=== PATIENT | male | born 1995 | race Two or more races ===

== ENCOUNTER 2017-01-05 18:56 | Emergency (ER) | payer MEDICAID, OTHER ==
[~2017-01-05] VITALS: Ht 167.6 cm; Wt 122.5 kg
[2017-01-05 19:11] LABS: BASOPHILS # (AUTO) 0.1 /CMM (0.0-0.2); BASOPHILS % (AUTO) 1.2 % (0.0-2.0); EOSINOPHILS # (AUTO) 0.3 /CMM (0.0-0.7); EOSINOPHILS % (AUTO) 2.6 % (0.0-6.0); HEMATOCRIT 47 % (39-51); HEMOGLOBIN 15.8 g/dL (13.5-17.5); LYMPHOCYTES # (AUTO) 2.7 /CMM (0.8-4.8); LYMPHOCYTES % (AUTO) 22.6 % (20.0-44.0); MEAN CORPUSCULAR HEMOGLOBIN 29 PG (26.0-33.0); MEAN CORPUSCULAR HGB CONC 34 g/dl (31.0-36.0); MEAN CORPUSCULAR VOLUME 86 fL (80-96); MONOCYTES # (AUTO) 1.2 /CMM (0.1-1.30); MONOCYTES % (AUTO) 9.9 % (2.0-12.0); NEUTROPHILS # (AUTO) 7.8 /CMM (1.8-8.9); NEUTROPHILS % (AUTO) 63.7 % (43.0-81.0); PLATELET COUNT (AUTO) 234 /CMM (150-450); RDW COEFFICIENT OF VARIATION 13.4 (11.5-15.0); RED BLOOD CELL COUNT(AUTO) 5.42 MIL/uL (4.5-6.0)
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
[2017-01-05 19:25] LABS: CALCIUM, SERUM 9.1 mg/dL (8.5-10.1); CARBON DIOXIDE 25 mmol/L (21-32); CHLORIDE 105 mmol/L (98-107); CREATININE 1.4 mg/dL (0.6-1.3); GLUCOSE 106 mg/dL (74-106); POTASSIUM 3.8 mmol/L (3.5-5.1); SODIUM SERUM 142 mmol/L (136-145); UREA NITROGEN, BLOOD 14 mg/dL (7-18)
[2017-01-05] MEDS ORDERED: LORAZEPAM 1 MG TABLET ONE (19:25)
[2017-01-05 19:28] LABS: WHITE BLOOD COUNT (AUTO) 12.1 K/uL (4.3-11.0)
[2017-01-05] MEDS ORDERED: LORAZEPAM 1 MG TABLET PO ONE (19:30)
[2017-01-05 19:31] LABS: ALANINE AMINOTRANSFERASE 97 U/L (12-78); ALBUMIN 4.1 g/dL (3.4-5.0); ALCOHOL, BLOOD < 3 mg/dL (0-0); ALKALINE PHOSPHATASE 102 U/L (46-116); ASPARTATE AMINOTRANSFERASE 40 U/L (15-37); BILIRUBIN,DIRECT 0.1 mg/dL (0.0-0.2); BILIRUBIN,TOTAL 0.3 mg/dL (0.2-1.0); TOTAL PROTEIN, SERUM 7.8 g/dL (6.4-8.2)
[2017-01-05 19:33] LABS: ACETAMINOPHEN 0 ug/ml (10-30); SALICYLATE 1.5 mg/dL (2.8-20.0)
--- NOTE | 2017-01-05 19:45 | NUR ---
PT UNABLE TO PROVIDE URINE SAMPLE AT THIS TIME. GIVEN WATER.
[2017-01-05 20:17] LABS: APPEARANCE,URINE Clear (CLEAR); BILIRUBIN,URINE Negative (NEGATIVE); BLOOD, URINE Trace-intact Ery/uL (NEGATIVE); COLOR,URINE Yellow (YELLOW); KETONES,URINE Negative (NEGATIVE); LEUKOCYTE ESTERASE ,URINE Negative (NEGATIVE); NITRITE, URINE Negative (NEGATIVE); PROTEIN,URINE 30 mg/dl (NEGATIVE); UGLUCOSE Negative (NEGATIVE); UROBILINOGEN,URINE 0.2 EU/dL (0.2)
[2017-01-05 20:31] LABS: BACTERIA,URINE Rare /HPF (None Seen); SQUAMOUS EPITHELIAL CELL,UR None Seen /HPF (None Seen); WBC,URINE 0-2 /HPF (0-3)
--- NOTE | 2017-01-05 21:05 | NUR ---
PT RESTING QUIETLY, NAD NOTED. ALL NEEDS ATTENDED TO.
--- NOTE | 2017-01-05 21:23 | NUR ---
REPORT GIVEN TO YESSICA REAGAN AT [facility] FOR TRANSFER.
[2017-01-05 21:28] VITALS: BP 143/84
--- NOTE | 2017-01-05 21:39 | NUR ---
PT TRANSFERRED TO [facility] IN STABLE CONDITION. ALL PAPERWORK WITH PT.
== END 2017-01-05 21:40 ==
LOC: ER 19:00
DX: F32.9 Major depressive disorder, single episode, unspecified (principal); F41.9 Anxiety disorder, unspecified; J45.909 Unspecified asthma, uncomplicated; E11.9 Type 2 diabetes mellitus without complications; F84.0 Autistic disorder
CPT/HCPCS: 36415; 80048-TC; 80076-TC; 80305; 81000-TC; 85025-TC; A4606; G0480; G6039-TC; Z7610

== ENCOUNTER 2017-02-18 06:18 | Emergency (ER) | payer OTHER ==
[~2017-02-18] VITALS: Ht 165.1 cm; Wt 115.2 kg
[2017-02-18 06:25] VITALS: BP 146/94
[2017-02-18] MEDS ORDERED: LET SOLN TOPICAL 8 ML UDC TP ONE (06:31)
[2017-02-18] MEDS: LET SOLN TOPICAL 8 ML UDC TP ONE (06:38)
== END 2017-02-18 07:05 | disposition home or self-care (01) ==
LOC: ER 06:18
DX: L02.511 Cutaneous abscess of right hand (principal); L03.011 Cellulitis of right finger; H60.92 Unspecified otitis externa, left ear; H66.92 Otitis media, unspecified, left ear; J45.909 Unspecified asthma, uncomplicated
CPT/HCPCS: A4606; A6403; Z7610

== ENCOUNTER 2017-02-22 18:45 | Emergency (ER) | payer OTHER ==
[~2017-02-22] VITALS: Ht 165.1 cm; Wt 106.6 kg
[2017-02-22 18:45] VITALS: BP 148/81
== END 2017-02-22 21:29 | disposition home or self-care (01) ==
LOC: ER 21:10
DX: L98.0 Pyogenic granuloma (principal); J45.909 Unspecified asthma, uncomplicated
CPT/HCPCS: A4606; Z7610

== ENCOUNTER 2017-02-28 20:05 | Emergency (ER) | payer OTHER ==
[~2017-02-28] VITALS: Ht 162.6 cm; Wt 113.4 kg
[2017-02-28] MEDS ORDERED: GELATIN SPONGE,ABSORBABLE 1 SPONGE SPONGE TP ONE (20:36)
--- NOTE | 2017-02-28 20:36 | NUR ---
COURTNEY AUGUSTINE IS AT THE BEDSIDE. GEL FOAM AT THE BEDSIDE FOR PROCEDURE.
--- NOTE | 2017-02-28 21:21 | NUR ---
Patient discharged to home in stable condition. Written and verbal after care instructions given. Patient verbalizes understanding of instruction. PT AMBULATED OUT WITH A STEADY GAIT.
[2017-02-28 21:22] VITALS: BP 117/84
== END 2017-02-28 21:22 | disposition home or self-care (01) ==
LOC: ER 20:07
DX: S69.91XA Unspecified injury of right wrist, hand and finger(s), initial encounter (principal); L98.0 Pyogenic granuloma; R23.3 Spontaneous ecchymoses; E66.01 Morbid (severe) obesity due to excess calories; L98.9 Disorder of the skin and subcutaneous tissue, unspecified; J45.909 Unspecified asthma, uncomplicated; Z68.41 Body mass index [BMI] 40.0-44.9, adult; W22.8XXA Striking against or struck by other objects, initial encounter; Y93.G3 Activity, cooking and baking; Y92.89 Other specified places as the place of occurrence of the external cause; Y99.9 Unspecified external cause status
CPT/HCPCS: 99283; A4606; A6402; Z7610

== ENCOUNTER 2018-08-23 16:09 | Emergency (ER) | payer OTHER ==
[~2018-08-23] VITALS: Ht 165.1 cm; Wt 121.6 kg
[2018-08-23 16:17] VITALS: BP 187/94
[2018-08-23] MEDS ORDERED: FAMOTIDINE (20 MG) 20 MG TABLET ONE (16:27)
[2018-08-23] MEDS ORDERED: methylPREDNISolone SOD SUCC 125 MG/2ML VIAL ONE (16:27)
[2018-08-23] MEDS ORDERED: methylPREDNISolone SOD SUCC 125 MG/2ML VIAL IM ONE (16:30)
[2018-08-23] MEDS ORDERED: FAMOTIDINE (20 MG) 20 MG TABLET PO ONE (16:30)
== END 2018-08-23 16:57 | disposition home or self-care (01) ==
LOC: ER 16:12
DX: J30.81 Allergic rhinitis due to animal (cat) (dog) hair and dander (principal)
CPT/HCPCS: 96372; 99283; A4606; J2930; Z7610

== ENCOUNTER 2018-09-05 11:21 | Emergency (ER) | payer OTHER ==
[~2018-09-05] VITALS: Ht 165.1 cm; Wt 122.5 kg
--- NOTE | 2018-09-05 11:21 | NUR ---
PT BIB SELF C/O THROAT TIGHTNESS, LIP SWELLING PROGRESSIVELY GETTING WORST X LAST NIGHT, PT IS AAOX4. NOT IN RESPIRATORY DISTRESS, KEPT RESTED AND COMFORTABLE.
--- NOTE | 2018-09-05 11:30 | NUR ---
SEEND AND EXAMINED BY DR. PIERSON.
[2018-09-05] MEDS ORDERED: methylPREDNISolone SOD SUCC 125 MG/2ML VIAL ONE (11:38)
[2018-09-05] MEDS ORDERED: FAMOTIDINE/PF INJ 20 MG/2 ML VIAL IV ONE ×2 (11:38→12:00)
[2018-09-05] MEDS ORDERED: diphenhydrAMINE HCL 50 MG/ML VIAL ONE (11:38)
[2018-09-05] MEDS ORDERED: methylPREDNISolone SOD SUCC 125 MG/2ML VIAL IV ONE (12:00)
[2018-09-05] MEDS ORDERED: diphenhydrAMINE HCL 50 MG/ML VIAL IV ONE (12:00)
--- NOTE | 2018-09-05 13:25 | NUR ---
IV removed. Catheter intact and site benign. Pressure and 4x4 applied to site. No bleeding noted. Patient discharged to home in stable condition. Written and verbal after care instructions given. Patient verbalizes understanding of instruction.
[2018-09-05 13:26] VITALS: BP 131/82
== END 2018-09-05 13:28 | disposition home or self-care (01) ==
LOC: ER 11:22
DX: J03.81 Acute recurrent tonsillitis due to other specified organisms (principal); R13.10 Dysphagia, unspecified
CPT/HCPCS: J1200; J2930; J3490

== ENCOUNTER 2021-11-26 10:14 | Emergency (ER) | payer OTHER ==
[~2021-11-26] VITALS: Ht 165.1 cm; Wt 127.0 kg
[2021-11-26 10:20] VITALS: BP 145/87
[2021-11-26] MEDS ORDERED: KETOROLAC TROMETHAMINE INJ 30 MG/ML VIAL ONE (10:51)
[2021-11-26] MEDS ORDERED: KETOROLAC TROMETHAMINE INJ 30 MG/ML VIAL IM ONE (11:00)
[2021-11-26] MEDS ORDERED: IBUP-1957 PO (11:25)
--- NOTE | 2021-11-26 11:44 | NUR ---
Patient discharged to home in stable condition. Written and verbal after care instructions given. Patient verbalizes understanding of instruction.
== END 2021-11-26 11:44 | disposition home or self-care (01) ==
LOC: ER 10:23
DX: S93.491A Sprain of other ligament of right ankle, initial encounter (principal); J45.909 Unspecified asthma, uncomplicated; Z91.09 Other allergy status, other than to drugs and biological substances; Z79.1 Long term (current) use of non-steroidal anti-inflammatories (NSAID); W18.30XA Fall on same level, unspecified, initial encounter; Y93.89 Activity, other specified; Y92.89 Other specified places as the place of occurrence of the external cause; Y99.8 Other external cause status
CPT/HCPCS: 73610; 96372; 99283; J1885